=== PATIENT | male | born 1975 | race Caucasian/White ===

== ENCOUNTER 2025-02-19 10:59 | Inpatient (IN) | payer SELFPAY ==
[2025-02-19] MEDS ORDERED: Tranexamic Acid 1,000 MG/10 ML VIAL ONE ×2 (11:04→11:38)
[2025-02-19] MEDS ORDERED: Ondansetron PF 4 MG/2 ML Vial ONE (11:14)
[2025-02-19 11:24] LABS: #Basophils 0.08 10x3/uL (0.0-0.2); #Eosinophils 0.47 10x3/uL (0.0-0.7); #Monocytes 0.70 10x3/uL (0.11-0.59); #Neutrophils 5.44 10x3/uL (1.40-6.50); %Basophils 0.8 % (0.0-1.0); %Eosinophils 4.5 % (0.0-10.0); %Lymphocytes 34.9 % (21.0-51.0); %Monocytes 6.8 % (0.0-10.0); %Neutrophils 52.7 % (42.0-75.0); Hematocrit 44.0 % (42.0-52.0); Hemoglobin 14.9 g/dL (14.0-18.0); Mean Corpuscular Hemoglobin 32.5 pg (27.0-31.0); Mean Corpuscular Volume 96.1 fL (78.0-98.0); Platelet Count 216 10x3/uL (130-400); Red Blood Cell (RBC) Count 4.58 mill/uL (4.70-6.10); White Blood Cell (WBC) Count 10.33 10x3/uL (4.8-10.8)
[2025-02-19 11:38] LABS: INR-International Normal Ratio 0.9; PTT 23.8 sec (22.9-36.1); Prothrombin Time 12.0 sec (12.0-14.7)
[2025-02-19] MEDS ORDERED: Iopamidol 370 76% 100 ML VIAL ONE (11:42)
[2025-02-19 11:48] LABS: Actual Bicarbonate (HCO3a) 20.8 mEq/L (22-28); Analyzer IN Cardio ER; Base Excess (BEa) -6.0 mEq/L (-2.0 to +3.0); CO2 Tension 45.8 mmHg (35.0-45.0); Calcium, Ionized (arterial) 1.17 mmol/L (1.12-1.30); Hematocrit-ABG 46 % (42.0-52.0); Hemoglobin (Hb) 15.8 g/dL (14.0-18.0); O2 Tension (PaO2), arterial 564.8 mmHg (80.0-100.0); Potassium - ABG Lab 3.13 mmol/L (3.70-5.30); pH, Arterial 7.276 (7.35-7.45)
[2025-02-19 11:52] LABS: ALT (SGPT) 35 U/L (Less than 45); AST (SGOT) 37 U/L (11-34); Albumin 4.6 g/dL (3.1-4.5); Alkaline Phosphatase 78 U/L (40-110); Anion Gap 18 mmol/L (10-20); BUN (Urea Nitrogen) 11 mg/dL (8.4-25.7); Bilirubin, Total 0.2 mg/dL (0.3-1.2); Calc. Creatinine Clearance 0 mL/min (70-130); Calcium 9.1 mg/dL (7.8-10.44); Carbon Dioxide 22 mmol/L (22-29); Chloride 100 mmol/L (98-107); Globulin 3.2 g/dL (2.4-3.5); Glucose 175 mg/dL (70-105); Lipase 82 U/L (8-78); Potassium 4.2 mmol/L (3.5-5.1); Sodium 136 mmol/L (136-145)
[2025-02-19 12:18] LABS: Cocaine Metabolite Screen Negative (Negative); THC/Cannabinoid Screen PRELIM POSITIVE (Negative); Tricyclic Screen Negative (Negative)
[2025-02-19] MEDS ORDERED: Glucagon 1 MG/ML KIT IM PRN (13:38)
[2025-02-19] MEDS ORDERED: hydrALAZINE 20 MG/ML VIAL SLOW IVP PRN (13:38)
[2025-02-19] MEDS ORDERED: HYDROcodone/Acetaminophen 5/325 mg Tablet PO PRN (13:38)
[2025-02-19] MEDS ORDERED: Acetaminophen 325 MG TAB PO PRN (13:38)
[2025-02-19] MEDS ORDERED: Dextrose 50% Abboject 50 ML SYRINGE SLOW IVP PRN (13:38)
[2025-02-19 14:35] LABS: Bacteria/HPF None Seen HPF (None Seen); CAUTI Indications for Culture Pelvic or flank pain; Glucose, Urine (Dipstick) 200 mg/dL (Negative); Leukocyte Negative Leu/uL (Negative); Protein, Urine (Dipstick) 10 mg/dL (Neg-Trace); RBC/HPF None Seen HPF (0-3); Specific Gravity, Urine 1.012 (1.002-1.036); WBC/HPF 0-3 HPF (0-3)
[2025-02-19 14:56] LABS: Urine Culture Reflex No No
[2025-02-19 14:58] VITALS: BMI 29.5
[2025-02-19] MEDS: Ventilator Sedation Protocol 1 EACH FS ONE (15:09)
[2025-02-19] MEDS ORDERED: DISCONTINUE PREVIOUS NARCOTIC PAIN MEDICATIONS AND BENZODIAZEPINES FS SCH (15:15)
[2025-02-19] MEDS ORDERED: Fentanyl BOLUS 100 ML IVPB PRN (15:15)
[2025-02-19] MEDS ORDERED: Propofol BOLUS 1,000 MG/100 ML VIAL IV PRN (15:15)
[2025-02-19] MEDS ORDERED: Magnesium 2 GM/50 ML(in water) 2 GM in Premix 1 BAG IVPB PRN (17:30)
[2025-02-19] MEDS ORDERED: PHOS-NAK 1 PKT PACK PO PRN (17:30)
[2025-02-19] MEDS ORDERED: Electrolyte Replacement Protocol 1 EACH FS SCH (17:30)
[2025-02-19] MEDS ORDERED: Potassium Chloride 20 MEQ in Premix 1 BAG IVPB PRN (17:30)
[2025-02-19 18:55] VITALS: BP 116/76
[2025-02-19] MEDS: Senokot S 8.6-50 MG TAB PO SCH (20:23)
[2025-02-20] MEDS: Ondansetron PF 4 MG/2 ML Vial IVP PRN (00:02)
[2025-02-20 07:17] LABS: Anion Gap 13 mmol/L (10-20); BUN (Urea Nitrogen) 11 mg/dL (8.4-25.7); Calc. Creatinine Clearance 188 mL/min (70-130); Calcium 8.3 mg/dL (7.8-10.44); Carbon Dioxide 25 mmol/L (22-29); Chloride 107 mmol/L (98-107); Glucose 128 mg/dL (70-105); Potassium 4.1 mmol/L (3.5-5.1); Sodium 141 mmol/L (136-145)
[2025-02-20 07:35] LABS: #Basophils 0.09 10x3/uL (0.0-0.2); #Eosinophils 0.22 10x3/uL (0.0-0.7); #Monocytes 1.40 10x3/uL (0.11-0.59); #Neutrophils 19.34 10x3/uL (1.40-6.50); %Basophils 0.4 % (0.0-1.0); %Eosinophils 0.9 % (0.0-10.0); %Lymphocytes 10.7 % (21.0-51.0); %Monocytes 5.9 % (0.0-10.0); %Neutrophils 81.6 % (42.0-75.0); Hematocrit 35.8 % (42.0-52.0); Hemoglobin 11.8 g/dL (14.0-18.0); Mean Corpuscular Hemoglobin 32.8 pg (27.0-31.0); Mean Corpuscular Volume 99.4 fL (78.0-98.0); Platelet Count 214 10x3/uL (130-400); Red Blood Cell (RBC) Count 3.60 mill/uL (4.70-6.10); White Blood Cell (WBC) Count 23.71 10x3/uL (4.8-10.8)
[2025-02-20] MEDS: Folic Acid 1 MG TAB PO SCH (10:45)
[2025-02-20] MEDS: Multivit, Therapeutic 1 TAB PO SCH (10:45)
[2025-02-20 12:45] VITALS: BMI 28.0
[2025-02-20 13:03] VITALS: TEMP 98.7
[2025-02-22] MEDS ORDERED: Thiamine 100 MG TAB PO SCH (09:00)
== END 2025-02-20 15:20 | disposition home or self-care (01) | DRG 897 ==
LOC: ERS 10:59 → CCU 13:44
PROVIDERS: ADMIT Surgery; ATTEND Surgery
PROC: 5A1935Z Respiratory Ventilation, Less than 24 Consecutive Hours (ICD-10-PCS; principal; 2025-02-19)
PROC: 0BH17EZ Insertion of Endotracheal Airway into Trachea, Via Natural or Artificial Opening (ICD-10-PCS; 2025-02-19)
PROC: 0HQ1XZZ Repair Face Skin, External Approach (ICD-10-PCS; 2025-02-19)
PROC: 0CQ0XZZ Repair Upper Lip, External Approach (ICD-10-PCS; 2025-02-19)
PROC: 0HQ3XZZ Repair Left Ear Skin, External Approach (ICD-10-PCS; 2025-02-19)
PROC: 4A033R1 Measurement of Arterial Saturation, Peripheral, Percutaneous Approach (ICD-10-PCS; 2025-02-19)
PROC: HZ2ZZZZ Detoxification Services for Substance Abuse Treatment (ICD-10-PCS; 2025-02-19)
DX: F10.129 Alcohol abuse with intoxication, unspecified (principal); S01.412A Laceration without foreign body of left cheek and temporomandibular area, initial encounter; S01.312A Laceration without foreign body of left ear, initial encounter; Z78.1 Physical restraint status; S01.511A Laceration without foreign body of lip, initial encounter; R45.1 Restlessness and agitation; W10.9XXA Fall (on) (from) unspecified stairs and steps, initial encounter; W22.8XXA Striking against or struck by other objects, initial encounter; Y90.7 Blood alcohol level of 200-239 mg/100 ml
CPT/HCPCS: 12014; 31500; 36415; 51702; 70450; 70486; 71045; 71260; 72125; 74177; 80048; 80053; 80306; 80307; 81001; 82805; 83605; 83690; 84484; 85025; 85610; 85730; 86850; 86900; 86901; 90471; 90715; 93005; 94760; 96365; 96366; 96375; 97139; 99292; G0390; J2270; J2405; J2704; J3411; J7120; Q9967

== ENCOUNTER 2025-03-03 09:26 | Emergency (ER) | payer SELFPAY | END 2025-03-03 10:30 | disposition home or self-care (01) | LOC: ERS 09:26 | DX: S01.412D Laceration without foreign body of left cheek and temporomandibular area, subsequent encounter (principal); S01.511D Laceration without foreign body of lip, subsequent encounter; E11.9 Type 2 diabetes mellitus without complications ==